=== PATIENT | female | born 1995 | race Caucasian/White ===

== ENCOUNTER → 2018-10-03 | Outpatient (CLI) | payer BC ==
--- NOTE | 2018-10-04 07:36 | ECHOF ---
Referral Reason:R55 Syncope MEASUREMENTS -------- HEIGHT: 182.9 cm WEIGHT: 63.5 kg BP: RVIDd: 2.2 cm (< 3.3) IVSd: 0.9 cm (0.6 - 1.1) LVIDd: 3.4 cm (3.9 - 5.3) LVPWd: 1.0 cm (0.6 - 1.1) IVSs: 1.1 cm LVIDs: 2.3 cm LVPWs: 1.4 cm LAESV Index (A-L): 24.91 ml/m Ao Diam: 2.5 cm (2.0 - 3.7) AV Cusp: 1.7 cm (1.5 - 2.6) LA Diam: 2.8 cm (2.7 - 3.8) MV EXCURSION: 13.015 mm (> 18.000) MV EF SLOPE: 156 mm/s (70 - 150) EPSS: 0.3 cm MV E Sonido: 0.90 m/s MV DecT: 181 ms MV A Sonido: 0.71 m/s MV E/A Ratio: 1.26 RAP: 5.00 mmHg RVSP: 30.00 mmHg FINDINGS -------- Sinus rhythm. This was a technically good study. The left ventricular size is normal. Left ventricular wall thickness is normal. Overall left vent ricular systolic function is normal with, an EF between 55 - 60 %. The right ventricle is normal in size. Normal LA size by volume 22+/-6 ml/m2. The right atrial size is normal. The aortic valve is trileaflet and appears structurally normal. There is trace mitral regurgitation. Mild tricuspid regurgitation present. The right ventricular systolic pressure, as measured by Doppl er, is 30.00mmHg. Trace/mild (physiologic) pulmonic regurgitation. The aortic root size is normal. Normal inferior vena cava with normal inspiratory collapse consistent with estimated right atrial pre ssure of 5 mmHg. There is no pericardial effusion. CONCLUSIONS -------- 1. Sinus rhythm. 2. This was a technically good study. 3. The left ventricular size is normal. 4. Left ventricular wall thickness is normal. 5. Overall left ventricular systolic function is normal with, an EF between 55 - 60 %. 6. The right ventricle is normal in size. 7. Normal LA size by volume 22+/-6 ml/m2. 8. The right atrial size is normal. 9. The aortic valve is trileaflet and appears structurally normal. 10. There is trace mitral regurgitation. 11. Mild tricuspid regurgitation present. 12. The right ventricular systolic pressure, as measured by Doppler, is 30.00mmHg. 13. Trace/mild (physiologic) pulmonic regurgitation. 14. The aortic root size is normal. 15. Normal inferior vena cava with normal inspiratory collapse consistent with estimated right atrial pressure of 5 mmHg. 16. There is no pericardial effusion. LAW REPORTER: Hansa Martinez RDCS
== END | disposition home or self-care (01) ==
LOC: RADECHMAIN 10:42
PROVIDERS: ATTEND Nurse Practitioner Family
DX: I07.1 Rheumatic tricuspid insufficiency (principal); I37.1 Nonrheumatic pulmonary valve insufficiency; I47.1 Supraventricular tachycardia; I49.3 Ventricular premature depolarization
CPT/HCPCS: 93270; 93306

== ENCOUNTER → 2018-12-28 | Outpatient (CLI) | payer BC ==
--- NOTE | 2018-12-28 10:32 | MR ---
EXAMINATION TYPE: MR brain wo/w con DATE OF EXAM: 12/28/2018 COMPARISON: None HISTORY: Passing out TECHNIQUE: Multiplanar, multisequence images of the brain and brainstem is performed without and with IV contras t, utilizing 6.5 mL intravenous Gadavist . FINDINGS: Diffusion weighted images demonstrate no evidence of a recent infarct or other diffusion ab normality. There is no extra-axial fluid collection or significant white matter signal abnormality. The ventricular system and cisternal spaces are normal in size and appearance. The brain volume is age appropriate. Midline structures demonstrate normal morphology. Cerebellar tonsils are slightly low-lying in positi on at the level the foramen magnum.. Post contrast images demonstrate no abnormal enhancement. The d ural venous sinuses appear patent. Changes of chronic sinusitis noted. IMPRESSION: 1. Cerebellar tonsils low-lying in position at the level of foramen magnum. No tonsillar beaking. 2. Mild chronic sinusitis.
== END | disposition home or self-care (01) ==
LOC: RADMRIMAIN 09:06
PROVIDERS: ATTEND Psychiatry & Neurology Neurology
DX: G43.909 Migraine, unspecified, not intractable, without status migrainosus (principal); R41.82 Altered mental status, unspecified; C76.0 Malignant neoplasm of head, face and neck
CPT/HCPCS: 70553; A9585

== ENCOUNTER → 2020-09-24 | Outpatient (CLI) | payer BC ==
--- NOTE | 2020-09-24 12:11 | CT ---
EXAMINATION TYPE: CT brain wo con DATE OF EXAM: 09/24/2020 COMPARISON: Correlation MRI 12/28/2018 HISTORY: 25-year-old female R55, syncope, Headaches with possible seizure. History of seizure activi ty. TECHNIQUE: Examination was done in axial plane without intravenous contrast. Coronal and sagittal r econstructions performed. CT DLP: 1012.7 mGycm Automated exposure control for dose reduction was used. FINDINGS: There is no evidence of acute intracranial hemorrhage, acute ischemic changes, mass, mass-effect, or extra-axial fluid collection. There is no effacement of cerebral sulci or basal subarachnoid cister ns. There is no hydrocephalus. There is no midline shift. Marinelli-white matter distinction is preserv ed. Paranasal sinuses and mastoid air cells well pneumatized. Orbits and globes are intact. IMPRESSION: No acute intracranial abnormality seen.
--- NOTE | 2020-10-05 13:54 | HM ---
HOLTER MONITOR REPORT A 48-Holter monitor. INDICATION: Palpitations. The patient was monitored for 48 hours. The baseline rhythm appeared to be sinus mechanism with a minimum heart rate of 45, maximal , average of 76 beats per minute. Ventricular ectopic events seen in less than 1% of the total beats count as well as supraventricular ectopic events seen. No evidence of sinus pause or sinus arrest. The patient reports no symptoms. CONCLUSION: 1. Sinus rhythm as a baseline mechanism. 2. Rare ventricular ectopic events. 3. Rare supraventricular ectopic events. 4. No evidence of significant sinus pause or sinus arrest. 5. The patient reports no symptoms. MMODL / IJN: [id number] /
== END | disposition home or self-care (01) ==
LOC: RADCTMAIN 11:26
PROVIDERS: ATTEND Psychiatry & Neurology Neurology
DX: I49.9 Cardiac arrhythmia, unspecified (principal); R55 Syncope and collapse
CPT/HCPCS: 70450; 93225; 93226

== ENCOUNTER → 2024-09-30 | Outpatient (CLI) | payer BC ==
--- NOTE | 2024-09-30 20:18 | MR ---
CLINICAL INDICATION: I72.9, G90.2, severe headaches, significant pupil dilatation, mass/aneurysm, ne w Horners syndrome COMPARISON: CT brain 09/24/2020, MRI brain 12/28/2018 TECHNIQUE: MR angiography of the head was performed utilizing 3-D noncontrast time of flight images. 3-D reformatted MIP images were generated on a separate workstation for review. Vascular assessment was performed utilizing NASCET criteria. FINDINGS: There is no evidence for focal stenosis, large vessel occlusion, or discrete aneurysm. IMPRESSION: No evidence for focal stenosis, occlusion or aneurysm. [facility], , 09/30/2024 8:15 PM
--- NOTE | 2024-10-01 08:19 | MR ---
INDICATION: Patient age:Female; 29 years old; Reason for study: I72.9, G90.2; [facility]. COMPARISON: MRI brain 12/28/2018, MRA head 09/30/2024, CT brain 09/24/2020. TECHNIQUE: Multi planar, multi sequence imaging was performed through the brain. The patient was then given 7 cc of Gadobutrol intravenously and multi planar, T1 fat-saturation images were obtained. FINDINGS: The ochoa-white junctions, ventricular system, basal cisterns appear unremarkable. Age-appropriate cer ebral parenchymal volume. Diffusion-weighted imaging shows no evidence of restricted diffusion to sug gest acute/subacute infarct. Intracranial arterial flow voids are maintained. Midline structures show no abnormality. No FLAIR signal abnormalities identified. The susceptibility weighted images shows a single focus of blooming artifact within the right frontal lobe which may represent a calcification versus prior hemosiderin deposition. After administration of gadolinium, no abnormal enhancement is s een. The bone marrow signal is within normal limits. The globes are unremarkable. T2 hyperintense inferio r right maxillary sinus 2.3 cm mucous retention cyst. Minimal mucosal thickening in the inferior left maxillary sinus. IMPRESSION: No evidence of intracranial mass, acute/subacute infarct, or abnormal enhancement. [facility], , 10/01/2024 8:17 AM
== END | disposition home or self-care (01) ==
LOC: RADMRIMAIN 19:45
PROVIDERS: ATTEND Psychiatry & Neurology Neurology
DX: G90.2 Horner's syndrome (principal); I72.9 Aneurysm of unspecified site
CPT/HCPCS: 70544; 70553; A9585